=== PATIENT | female | born 1930 | race Caucasian/White ===

== ENCOUNTER 2016-09-13 10:35 | Outpatient (CLI) | payer MEDICARE, OTHER | END 2016-09-13 10:36 | disposition home or self-care (01) | DX: N39.0 Urinary tract infection, site not specified (principal) ==

== ENCOUNTER 2016-12-16 09:51 | Outpatient (CLI) | payer MEDICARE, OTHER | END 2016-12-16 09:52 | disposition home or self-care (01) | DX: R10.31 Right lower quadrant pain (principal); N39.0 Urinary tract infection, site not specified ==

== ENCOUNTER 2016-12-19 07:53 | Outpatient (CLI) | payer MEDICARE, OTHER ==
[2016-12-19] MEDS ORDERED: IOPAMIDOL-300 100 ML VIAL IVP ONE (08:48)
== END 2016-12-19 07:54 | disposition home or self-care (01) ==
DX: N20.0 Calculus of kidney (principal)
CPT/HCPCS: 74178; Q9967

== ENCOUNTER 2017-01-31 10:21 | Emergency (ER) | payer MEDICARE, OTHER ==
[2017-01-31 11:20] LABS: UR CULTURE IF IND NOT INDICATED
[2017-01-31 11:35] LABS: BILIRUBIN,URINE SMALL (NEGATIVE)
[2017-01-31] MEDS ORDERED: ONDANSETRON 4 MG/2 ML VIAL IVP STA (11:43)
[2017-01-31] MEDS ORDERED: SODIUM CHLORIDE 0.9% 1,000 ML IV ONE ×2 (11:43→13:31)
[2017-01-31] MEDS ORDERED: ONDANSETRON 4 MG/2 ML VIAL ONE (11:44)
[2017-01-31 11:59] LABS: BASOPHILS % (AUTO) 0.3 %; HCT - HEMATOCRIT 31.1 % (37.0-47.0); HGB - HEMOGLOBIN 10.4 g/dL (12.0-16.0); LYMPHOCYTES # (AUTO) 1.3 10^3/uL (1.5-3.5); MEAN CORPUSCULAR HEMOGLOBIN 29.3 pg (27.0-31.0); MEAN CORPUSCULAR HGB CONC 33.5 g/dL (32.0-36.0); MEAN CORPUSCULAR VOLUME 87.5 fL (81.0-99.0); MEAN PLATELET VOLUME 6.6 fL (7.9-10.8); MONOCYTES # (AUTO) 0.9 10^3/uL (0.0-1.0); MONOCYTES % (AUTO) 7.1 %; NEUTROPHILS % (AUTO) 81.6 %; RED BLOOD COUNT 3.55 10^6/uL (4.20-5.40); RED CELL DISTRIBUTION WIDTH 14.5 % (12.0-15.0); UNCORRECTED WHITE BLOOD COUNT 12.2 x10^3/uL; WHITE BLOOD COUNT 12.2 x10^3/uL (4.8-10.8)
[2017-01-31 12:12] LABS: CALCIUM 8.7 mg/dL (8.5-10.3); POTASSIUM 3.4 mmol/L (3.5-5.0); TOTAL PROTEIN 6.5 g/dL (6.7-8.2)
[2017-01-31] MEDS ORDERED: HYDROmorphone 1 MG/ML SYRINGE IVP STA (12:28)
[2017-01-31] MEDS ORDERED: HYDROmorphone 1 MG/ML SYRINGE ONE (12:28)
--- NOTE | 2017-01-31 14:21 | XRAY Preliminary Report ---
Exam: XR Abdomen 1 View IMPRESSION: No obvious calcifications projecting over the expected location of the right kidney or ur eter. Sensitivity is somewhat limited secondary to dense overlying stool. [facility] SITE ID: [id number]
--- NOTE | 2017-01-31 14:23 | XRAY Report ---
EXAM: ABDOMEN RADIOGRAPHY EXAM DATE: 01/31/2017 02:06 PM. CLINICAL HISTORY: Rt sided abd pain; 2 days S/P percutan. nephrostom. COMPARISON: 12/19/2016. TECHNIQUE: 1 view. FINDINGS: Bowel Gas Pattern: There is large volume stool within right colon. There is high normal caliber left abdomen small bowel. Other: No obvious calcifications projecting over the expected location of the right kidney or ureter. IMPRESSION: No obvious calcifications projecting over the expected location of the right kidney or ur eter. Sensitivity is somewhat limited secondary to dense overlying stool. [facility] Referring Provider Line: [phone] SITE ID: [id number]
--- NOTE | 2017-01-31 14:30 | ED Physician Documentation ---
PD HPI ABD PAIN - Stated complaint Stated Complaint: VOMITING/BLOOD IN URINE - Chief complaint Chief Complaint: Abd Pain - History obtained from History obtained from: Patient, Family (spouse) - History of Present Illness Quality: Pain Location: Other (lower abdomen and right flank) Associated symptoms: Fever (last night), Vomiting Recently seen: Surgery (2 days S/P Percutaneous Nephrostomy/Lithotripsy.) - Additional information Additional information: The patient is an 86-year-old female who is 2 days status post right percutaneous nephrostomy/lithotripsy, who presents with right flank and lower abdominal pain. She has had at least 3 episodes of vomiting, stating she is not able to eat or drink anything due to nausea. She reports low-grade fever last night. She denies dysuria, but has noticed bloody urine. Review of Systems Constitutional: reports: Fever Nose: denies: Congestion Throat: denies: Sore throat Cardiac: denies: Chest pain / pressure Respiratory: denies: Dyspnea, Cough GI: reports: Abdominal Pain, Nausea, Vomiting : reports: Hematuria. 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 (2 days status post percutaneous kidney stone removal.) - Present Medications Home Medications: Ambulatory Orders Medication Instructions Recorded Confirmed Aspirin 1 tab ORAL DAILY PM 01/22/14 01/22/14 Cholestyramine [Questran] 01/22/14 01/22/14 Diltiazem HCl [Tiazac] 1 tab ORAL DAILY PM 01/22/14 03/31/16 LORazepam [Ativan] 1 tab ORAL PRN PRN 01/22/14 03/31/16 Losartan [Cozaar] 1 tab ORAL DAILY 01/22/14 03/31/16 Oxybutynin [Ditropan] 10 mg ORAL DAILY 01/22/14 03/31/16 Promethazine [Phenergan] 25 - 50 mg PO Q6H PRN #10 tab 01/31/17 - Allergies Allergies/Adverse Reactions: Allergies Allergy/AdvReac Type Severity Reaction Status Date / Time cefixime Allergy Hives Verified 07/04/16 18:35 ciprofloxacin Allergy Unknown Verified 01/31/17 10:47 - Social History Does the pt smoke?: No Smoking Status: Never smoker Does the pt drink ETOH?: No Does the pt have substance abuse?: No PD ED PE NORMAL - Vitals Vital signs reviewed: Yes (initially hypertensive.) - General General: Alert and oriented X 3, Well developed/nourished, Other (Appears uncomfortable.) - HEENT HEENT: Atraumatic, Pharynx benign - Neck Neck: No adenopathy, No JVD - Cardiac Cardiac: RRR, No murmur - Respiratory Respiratory: No respiratory distress, Clear bilaterally - Abdomen Abdomen: Soft, Other (Mild tenderness to palpation in the lower abdomen, without rebound or guarding.) - Back Back: Other (Percutaneous nephrostomy site at the right flank is nonerythematous and without swelling or fluid drainage.) - Derm Derm: No rash - Extremities Extremities: No edema, No calf tenderness / cord - Neuro Neuro: Alert and oriented X 3, No motor deficit, Normal speech Results - Vitals Vitals: Vital Signs - 24 hr 01/31/17 01/31/17 01/31/17 10:43 11:00 12:31 Temperature 37 C Heart Rate 89 89 Respiratory 16 16 Rate Blood Pressure 148/70 H 159/66 H O2 Saturation 89 L 97 95 01/31/17 01/31/17 01/31/17 13:31 14:49 15:11 Temperature Heart Rate 92 89 103 H Respiratory 16 16 20 Rate Blood Pressure 140/64 H 149/71 H 168/81 H O2 Saturation 97 95 95 01/31/17 01/31/17 16:03 16:19 Temperature Heart Rate 97 79 Respiratory 16 18 Rate Blood Pressure 144/60 H 144/61 H O2 Saturation 89 L 91 L Oxygen O2 Source Room air - Labs Labs: Laboratory Tests 01/31/17 01/31/17 01/31/17 10:53 11:52 11:52 WBC 12.2 H RBC 3.55 L Hgb 10.4 L Hct 31.1 L MCV 87.5 MCH 29.3 MCHC 33.5 RDW 14.5 Plt Count 244 MPV 6.6 L Neut # 10.0 H Lymph # 1.3 L [place] # 0.9 Eos # 0.0 Baso # 0.0 Absolute Nucleated RBC 0.00 Nucleated RBCs 0.0 Sodium 135 Potassium 3.4 L Chloride 99 L Carbon Dioxide 27 Anion Gap 9.0 BUN 16 Creatinine 1.0 Estimated GFR (MDRD) 53 L Glucose 126 H Calcium 8.7 Total Bilirubin 1.0 AST 22 ALT 15 Alkaline Phosphatase 104 Total Protein 6.5 L Albumin 3.2 Globulin 3.3 Albumin/Globulin Ratio 1.0 Lipase 12 L Urine Color RED/BLOODY Urine Clarity BLOODY Urine pH 6.0 Ur Specific [place] >=1.030 H Urine Protein 100 H Urine Glucose (UA) NEGATIVE Urine Ketones 40 H Urine Occult Blood LARGE H Urine Nitrite NEGATIVE Urine Bilirubin SMALL H Urine Urobilinogen 0.2 (NORMAL) Ur Leukocyte Esterase NEGATIVE Urine RBC TNTC H Urine WBC 4-5 Ur Squamous Epith Cells FEW Squamous Urine Bacteria Few Urine Culture Comments NOT INDICATED - Rads (name of study) 1-view Abdomen Radiology: Prelim report reviewed, EMP read contemporaneously, See rad report ( No obvious calcifications projecting over the expected location of the right kidney or ureter. 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 Her urinalysis reveals hematuria, without urinary infection. I doubt pyelonephritis. A KUB reveals no evidence of remaining renal or ureteral calculus. CBC reveals a mildly elevated white blood cell count of 12.2. Treatment in the emergency department included administration of normal saline 1 L IV, hydromorphone 1 mg IV, and Zofran 4 mg IV. Her symptoms markedly improved with the above treatment, and she subsequently demonstrated the ability to drink fluids and eat crackers, without recurrent nausea. She did have an episode of grossly bloody urine while in the emergency department. Her next urine output, however, was less bloody appearing, with only slight bloody tinge. I discussed her presentation with Dr. Stanley, the urologist, who advised that her symptoms are to be expected following the procedure that was performed 2 days ago. She advised symptomatic treatment and outpatient follow-up. The patient has a prescription for Percocet that has not yet been filled. I discharged her with a prescription for Phenergan. I discussed with her and her symptomatic treatment and outpatient follow-up, as well as potentially worrisome signs or symptoms that should prompt reevaluation in the emergency department. Departure - Departure Disposition: 01 Home, Self Care Clinical Impression: Dehydration, Hematuria, Status post urinary system surgery Abdominal pain Qualifiers: Abdominal location: unspecified location Qualified Code(s): R10.9 - Unspecified abdominal pain Vomiting Qualifiers: Vomiting type: unspecified Vomiting Intractability: non-intractable Nausea presence: with nausea Qualified Code(s): R11.2 - Nausea with vomiting, unspecified Condition: Stable Instructions: ED Nausea Vomiting Follow-Up: Kaylie Stanley MD [Physician No Access] - Jose Eduardo Rebollar MD [Primary Care Provider] - Prescriptions: Promethazine [Phenergan] 25 - 50 mg PO Q6H PRN #10 tab PRN Reason: Nausea / Vomiting Comments: 1. Drink plenty of fluids. 2. Use Phenergan as prescribed if needed for nausea. 3. You can use Percocet as previously prescribed if needed for pain. 4. Follow-up with Dr. Stanley in as planned. 5. Return to the emergency department if you develop increasing abdominal pain , persistent vomiting, or otherwise worsening symptoms. Discharge Date/Time: 01/31/17 16:33
[2017-01-31 16:20] VITALS: BP 144/61
== END 2017-01-31 16:33 | disposition home or self-care (01) ==
LOC: ED 10:21
DX: E86.0 Dehydration (principal); R31.9 Hematuria, unspecified; R10.31 Right lower quadrant pain; R11.2 Nausea with vomiting, unspecified; I10 Essential (primary) hypertension; Z93.6 Other artificial openings of urinary tract status; Z87.442 Personal history of urinary calculi; Z79.82 Long term (current) use of aspirin; Z98.890 Other specified postprocedural states
CPT/HCPCS: 36415; 74000; 80053; 81001; 83690; 85025; 96374; 96375; 99284; J1170; 87086

== ENCOUNTER 2017-07-10 14:16 | Outpatient (CLI) | payer MEDICARE, OTHER ==
--- NOTE | 2017-07-11 16:07 | Mammography Report ---
DIGITAL BILATERAL SCREENING MAMMOGRAM: 07/10/2017 COMPARISON: Mammogram of 04/18/2015. TECHNIQUE: Routine CC and MLO projections were obtained of the breasts. FINDINGS: Parenchymal tissue within both breasts is heterogeneously dense, which may lower the sensitivity of mammography; however, there are no dominant masses, suspicious microcalcifications, or secondary signs of malignancy. In comparison to the previous studies, there are no significant changes. ASSESSMENT: NO MAMMOGRAPHIC EVIDENCE OF MALIGNANCY. NO SIGNIFICANT INTERVAL CHANGES. RECOMMENDATION: Screening mammography is recommended annually. BIRADS category 1 - negative. STANDARD QUALIFYING STATEMENTS 1. This examination was reviewed with the aid of Computed-Aided Detection (CAD). 2. A negative or benign imaging report should not delay biopsy if clinically suspicious findings are present. Consider surgical consultation if warranted. More than 5% of cancers are not identified by imaging. 3. Dense breasts may obscure an underlying neoplasm. JOB #: [id number] EXT JOB #: [id number] KATHY
== END 2017-07-10 14:17 | disposition home or self-care (01) ==
LOC: DI 14:16
PROVIDERS: ATTEND Family Medicine
DX: Z12.31 Encounter for screening mammogram for malignant neoplasm of breast (principal)
CPT/HCPCS: 77067

== ENCOUNTER 2017-09-11 11:43 | Emergency (ER) | payer MEDICARE, OTHER ==
[2017-09-11 12:29] LABS: BASOPHILS # (AUTO) 0.1 10^3/uL (0.0-0.1); BASOPHILS % (AUTO) 0.9 %; EOSINOPHILS # (AUTO) 0.1 10^3/uL (0.0-0.7); EOSINOPHILS % (AUTO) 1.7 %; HGB - HEMOGLOBIN 12.2 g/dL (12.0-16.0); LYMPHOCYTES # (AUTO) 3.3 10^3/uL (1.5-3.5); LYMPHOCYTES % (AUTO) 49.7 %; MEAN CORPUSCULAR HEMOGLOBIN 29.8 pg (27.0-31.0); MEAN CORPUSCULAR HGB CONC 34.3 g/dL (32.0-36.0); MEAN CORPUSCULAR VOLUME 86.9 fL (81.0-99.0); MEAN PLATELET VOLUME 7.1 fL (7.9-10.8); MONOCYTES # (AUTO) 0.5 10^3/uL (0.0-1.0); MONOCYTES % (AUTO) 8.2 %; NEUTROPHILS # (AUTO) 2.6 10^3/uL (1.5-6.6); NEUTROPHILS % (AUTO) 39.5 %; PLT - PLATELET COUNT 237 10^3/uL (130-450); RED BLOOD COUNT 4.09 10^6/uL (4.20-5.40); RED CELL DISTRIBUTION WIDTH 14.3 % (12.0-15.0); WHITE BLOOD COUNT 6.6 x10^3/uL (4.8-10.8)
[2017-09-11 12:48] LABS: ALBUMIN 3.8 g/dL (3.2-5.5); ALBUMIN/GLOBULIN RATIO 1.1 (1.0-2.2); BILIRUBIN,TOTAL 0.6 mg/dL (0.2-1.0); CALCIUM 9.2 mg/dL (8.5-10.3); CREATININE 0.7 mg/dL (0.4-1.0); TOTAL PROTEIN 7.2 g/dL (6.7-8.2)
--- NOTE | 2017-09-11 14:20 | ED Physician Documentation ---
History of Present Illness - Stated complaint Stated Complaint: BACK/CHEST PX - Chief complaint Chief Complaint: Cardiac - Additonal information Additional information: hx from pt 87 y/o female has had upper left back pain every night making it hard to sleep for a long time worse recently last two nights she has also had left upper chest pain when she lays down lasting until at least 4 AM no fever cough not soa no abd pain has recently had numerous urology procedures and tests Review of Systems Constitutional: denies: Fever, Chills Cardiac: reports: Chest pain / pressure Respiratory: denies: Dyspnea, Cough GI: denies: Abdominal Pain Musculoskeletal: reports: Back pain (upper left) Neurologic: denies: Generalized weakness Endocrine: denies: Easy bruising / bleeding Immunocompromised: denies: Immunocompromised PD PAST MEDICAL HISTORY - Past Medical History Past Medical History: Yes Cardiovascular: Hypertension Respiratory: None Neuro: None Endocrine/Autoimmune: None : Kidney stones Psych: Depression - Past Surgical History 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 - Present Medications Home Medications: Ambulatory Orders Medication Instructions Recorded Confirmed Aspirin 1 tab ORAL DAILY PM 01/22/14 01/22/14 Cholestyramine [Questran] 01/22/14 01/22/14 Diltiazem HCl [Tiazac] 1 tab ORAL DAILY PM 01/22/14 03/31/16 LORazepam [Ativan] 1 tab ORAL PRN PRN 01/22/14 03/31/16 Losartan [Cozaar] 1 tab ORAL DAILY 01/22/14 03/31/16 Oxybutynin [Ditropan] 10 mg ORAL DAILY 01/22/14 03/31/16 Promethazine [Phenergan] 25 - 50 mg PO Q6H PRN #10 tab 01/31/17 Lidocaine Patch 5% [Lidoderm Patch] 1 - 2 each TOP DAILY PRN #20 patch 09/11/17 - Allergies Allergies/Adverse Reactions: Allergies Allergy/AdvReac Type Severity Reaction Status Date / Time cefixime Allergy Hives Verified 07/04/16 18:35 ciprofloxacin Allergy Unknown Verified 01/31/17 10:47 - Social History Does the pt smoke?: No Smoking Status: Never smoker Does the pt drink ETOH?: No Does the pt have substance abuse?: No Results - Vitals Vitals: Vital Signs - 24 hr 09/11/17 09/11/17 09/11/17 11:48 13:31 14:34 Temperature 36.8 C Heart Rate 78 61 58 L Respiratory 16 14 16 Rate Blood Pressure 146/87 H 140/74 H 158/69 H O2 Saturation 98 100 99 Oxygen O2 Source Room air - EKG (time done) 1151 Rate: Rate (enter#) (65) Rhythm: NSR [place]: Normal Intervals: Normal [place] QRS: Normal Ischemia: Normal ST segments - Labs Labs: Laboratory Tests 09/11/17 09/11/17 09/11/17 12:15 12:15 12:15 WBC 6.6 RBC 4.09 L Hgb 12.2 Hct 35.5 L MCV 86.9 MCH 29.8 MCHC 34.3 RDW 14.3 Plt Count 237 MPV 7.1 L Neut # 2.6 Lymph # 3.3 [place] # 0.5 Eos # 0.1 Baso # 0.1 Absolute Nucleated RBC 0.00 Nucleated RBC % 0.1 Sodium 138 Potassium 3.9 Chloride 99 L Carbon Dioxide 27 Anion Gap 12.0 BUN 21 H Creatinine 0.7 Estimated GFR (MDRD) 80 L Glucose 92 Calcium 9.2 Total Bilirubin 0.6 AST 24 ALT 17 Alkaline Phosphatase 100 Troponin I < 0.04 Total Protein 7.2 Albumin 3.8 Globulin 3.4 Albumin/Globulin Ratio 1.1 Lipase 14 L - Rads (name of study) CXR Radiology: See rad report (NACPD tight mediastinum and no cap/effusion) PD MEDICAL DECISION MAKING - ED course ED course: neg EKG and CE after pain for all night several night in a row effectively ruling out ACS no mass on CXR no soa hypoxia tachypnea tachycardia leg edema etc to suggest PE CXR shows tight mediastinum - not suggesting dissection and unlikely PE or dissection would hurt only at night for many nights in a row will reassure and dc with lido patch to wear at night Departure - Departure Disposition: 01 Home, Self Care Clinical Impression: Back pain Qualifiers: Back pain location: thoracic back pain Chronicity: chronic Back pain laterality : left Qualified Code(s): M54.6 - Pain in thoracic spine; G89.29 - Other chronic pain; G89.29 - Other chronic pain Chest pain Qualifiers: Chest pain type: unspecified Qualified Code(s): R07.9 - Chest pain, unspecified Condition: Good Instructions: ED Chest Pain Atypical Unkn Cause, ED Neck Back Pain General Follow-Up: Jose Eduardo Rebollar MD [Primary Care Provider] - Prescriptions: Lidocaine Patch 5% [Lidoderm Patch] 1 - 2 each TOP DAILY PRN #20 patch PRN Reason: Pain Comments: All the tests today came back fine. Your history exam labs xray and EKG do not suggest a heart attack, a blood clot in your lungs, a tear or aneurysm of your aorta, shingles, pneumonia, or a mass in your lung. I am honsestly not certain what is causing the pain but I thik it is safe for you to go home from the emergency room and to follow up with Dr Rebollar for further testing as an outpatient - such as the echocardiogram we talked about Try the lidocaine patches - apply one hour before bed since the pain only occurs at night - and then remove in the morning. You can use up to two patches at a time if you need to put one front and one back
--- NOTE | 2017-09-11 14:40 | XRAY Preliminary Report ---
Exam: XR CHEST 2 VIEW X-RAY IMPRESSION: Normal 2-view chest radiography. [facility] SITE ID: [id number]
--- NOTE | 2017-09-11 14:51 | XRAY Report ---
EXAM: CHEST RADIOGRAPHY EXAM DATE: 09/11/2017 02:20 PM. CLINICAL HISTORY: Chest pain. COMPARISON: 07/04/2016. TECHNIQUE: 2 views. FINDINGS: Lungs/Pleura: Interval resolution of the small right basilar infiltrate. No focal opacities evident. No pleural effusion. No pneumothorax. Normal volumes. Mediastinum: Heart and mediastinal contours are unremarkable. Other: None. IMPRESSION: Normal 2-view chest radiography. [facility] Referring Provider Line: [phone] SITE ID: [id number]
[2017-09-11 15:36] VITALS: BP 152/76
== END 2017-09-11 15:45 | disposition home or self-care (01) ==
LOC: ED 11:43
DX: M54.6 Pain in thoracic spine (principal); G89.29 Other chronic pain; R07.9 Chest pain, unspecified; I10 Essential (primary) hypertension; Z79.82 Long term (current) use of aspirin
CPT/HCPCS: 36415; 71046; 80053; 83690; 84484; 85025; 93005; 99283; 99284

== ENCOUNTER 2018-07-01 09:28 | Outpatient (CLI) | payer MEDICARE, OTHER ==
--- NOTE | 2018-07-01 14:25 | CARDIAC PROCEDURE NOTE ---
DATE OF SERVICE: 07/01/2018 Physician: Suzie Castaneda MD, [facility] INDICATION: Chest pain. CARDIAC RISK FACTORS: Advanced age, postmenopausal status, hypertension, family history of heart disease. The patient reports 2 different types of chest pain: She has anterior chest pain when she lays down, trying to go to sleep and another left posterior chest pain when she is "doing housework". SUMMARY: After signing informed consent, the patient underwent a Adolfo-protocol treadmill stress test with nuclear myocardial imaging. RESTING HEART RATE: 63. PEAK HEART RATE: 129 (95% predicted maximum heart rate). RESTING BLOOD PRESSURE: 180/80. PEAK BLOOD PRESSURE: 172/70. Excessively fast heart rate response to exercise, abnormal blood pressure drop to exercise. The patient exercised for 1 minute and 43 seconds on a Adolfo-protocol treadmill stress test. The patient achieved a peak heart rate of 129 (95% PMHR) and 3.5 METS. She developed mild to moderate shortness of breath. She had no chest pain with walking, but described chest pain as soon as she sat down in recovery in the anterior chest, not the posterior left chest. This chest pain resolved after 2 minutes of recovery. Oxygen saturation at peak was 98% on room air. RESTING EKG: Normal sinus rhythm, flat T-wave in lead aVF. PEAK EK mm ST depressions in leads III and aVF with unchanged T waves. SUMMARY: 1. Poor exercise tolerance. 2. Abnormal blood pressure response to exercise, this is concerning for widespread coronary ischemia. 3. Ischemic changes on EKG at an adequate level of stress. 4. High blood pressure, poorly controlled. 4. Nuclear images reported separately. cc: Jose Eduardo Rebollar MD TD: 07/01/2018 13:00 MTDD
--- NOTE | 2018-07-01 16:25 | Nuclear Medicine Report ---
Reason: CHEST PAIN Procedure Date: 07/01/2018 Accession Number: [id number] / [id number] Procedure: NM - Myocardial Perfusion STR/RST CPT Code: FULL RESULT: EXAM: SINGLE-ISOTOPE EXERCISE STRESS TEST. SINGLE-ISOTOPE AND ONE-DAY REST/STRESS MYOCARDIAL PERFUSION SCANS WITH TOMOGRAPHIC IMAGING, QUANTITATIVE ANALYSIS, WALL MOTION ANALYSIS AND CALCULATION OF EJECTION FRACTION. EXAM DATE: 07/01/2018 01:54 PM. CLINICAL HISTORY: CHEST PAIN. COMPARISON: None. TECHNIQUE: A rest myocardial perfusion scan was done with tomography after the intravenous administration of 9.7 mCi Tc-99m sestamibi. After an appropriate delay, a treadmill exercise stress was performed according to department protocol. The patient exercised for 1 minutes and 31 seconds. The maximum heart rate was 129 bpm, which was 95% of the maximum predicted heart rate of 135 bpm. At approximately peak heart rate, 42.3 mCi of Tc-99m sestamibi was injected for stress myocardial perfusion scan. Motion correction was applied when appropriate. Gated tomographic images were obtained for wall motion analysis and computation of left ventricular ejection fraction. FINDINGS: No fixed or reversible perfusion defects are evident. Computer analysis: Summed stress score 1 Summed rest score 0 Summed difference score 1 Wall motion analysis demonstrates no focal wall motion abnormality The left ventricular end-diastolic volume is 33 cc. The left ventricular end-systolic volume is 1 cc. The left ventricular ejection fraction is calculated to be 95%. IMPRESSION: 1. No scintigraphic findings to indicate myocardial ischemia. Negative for infarct. 2. Normal left ventricular ejection fraction of 95% (presumably an overestimate). 3. Normal segmental and global wall motion. 4. Normal left ventricular cavity size, no change with stress. 5. Based on computer analysis, normal exam with no ischemia [facility]
== END 2018-07-01 09:29 | disposition home or self-care (01) ==
LOC: DI 09:28
PROVIDERS: ATTEND Family Medicine
DX: R07.89 Other chest pain (principal); I10 Essential (primary) hypertension; Z82.49 Family history of ischemic heart disease and other diseases of the circulatory system; Z78.0 Asymptomatic menopausal state
CPT/HCPCS: 78452; 93017; A9500

== ENCOUNTER 2018-10-22 14:43 | Emergency (ER) | payer MEDICARE, OTHER ==
[2018-10-22 14:57] VITALS: BP 132/60
[2018-10-22] MEDS ORDERED: DEXAMETHASONE 10 MG/ML VIAL PO STA (15:12)
[2018-10-22] MEDS ORDERED: diphenhydrAMINE 25 MG CAPSULE PO STA (15:12)
--- NOTE | 2018-10-22 15:12 | ED Physician Documentation ---
PD HPI UPPER EXT INJURY - Stated complaint Stated Complaint: FINGER INJURY - Chief complaint Chief Complaint: Ext Problem - History obtained from History obtained from: Patient, Family - History of Present Illness Location: Left, Finger (pinky) Type of injury: Other (bite) Where injury occurred: Home Timing - onset: Enter time (1400), Today Timing - duration: Minutes Timing - details: Abrupt onset, Still present Improved by: Rest, Ice, Immobilization Worsened by: Moving, Palpating Associated symptoms: Swelling, Discolored. No: Weakness, Numbness Contributing factors: No: Anticoagulated Similar symptoms before: Has not had sx before Recently seen: Not recently seen - Additonal information Additional information: 88-year-old female was outside putting a pair of gardening gloves on to help her the role of a extension cord when she felt the sudden severe pain to her pinky finger on the left hand. She pulled her hand out of the glove rapidly to find redness and swelling to the dorsal surface of the fifth digit. She did not see a Bee or a bug and the turned gloves inside out. She does state that she was able to unroofed a small blister that drained some clear fluid. Review of Systems Constitutional: denies: Fever, Chills, Myalgias Respiratory: denies: Cough GI: denies: Vomiting : denies: Dysuria Skin: reports: Bite / sting. denies: Rash Musculoskeletal: reports: Extremity pain. 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 Home Medications: Ambulatory Orders Medication Instructions Recorded Confirmed Diltiazem HCl [Tiazac] 1 tab ORAL DAILY PM 01/22/14 03/31/16 LORazepam [Ativan] 1 tab ORAL PRN PRN 01/22/14 03/31/16 Losartan [Cozaar] 1 tab ORAL DAILY 01/22/14 03/31/16 RX: Aspirin 1 tab ORAL DAILY PM 01/22/14 01/22/14 RX: Cholestyramine [Questran] 01/22/14 01/22/14 RX: Oxybutynin [Ditropan] 10 mg ORAL DAILY 01/22/14 03/31/16 Promethazine [Phenergan] 25 - 50 mg PO Q6H PRN #10 tab 01/31/17 RX: Lidocaine Patch 5% [Lidoderm 1 - 2 each TOP DAILY PRN #20 patch 09/11/17 Patch] - Allergies Allergies/Adverse Reactions: Allergies Allergy/AdvReac Type Severity Reaction Status Date / Time cefixime Allergy Hives Verified 10/22/18 14:57 ciprofloxacin Allergy Unknown Verified 10/22/18 14:57 - Social History Does the pt smoke?: No Smoking Status: Never smoker Does the pt drink ETOH?: No Does the pt have substance abuse?: No PD ED PE NORMAL - Vitals Vital signs reviewed: Yes (hypertensive mild ) - General General: Alert and oriented X 3, No acute distress, Well developed/nourished - HEENT HEENT: Atraumatic, PERRL, EOMI - Respiratory Respiratory: No respiratory distress - Derm Derm: Normal color, Warm and dry, No rash - Extremities Extremities: No deformity, No edema, Other (There is erythema to the left 5th digit over the dorsum to the hand. There is no drainage and no lymphangitic streaking. The swelling is mild. 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, No motor deficit, No sensory deficit, Normal speech Eye Opening: Spontaneous Motor: Obeys Commands Verbal: Oriented GCS Score: 15 - Psych Psych: Normal mood, Normal affect Results - Vitals Vitals: Vital Signs - 24 hr 10/22/18 14:50 Temperature 36.4 C L Heart Rate 68 Respiratory 16 Rate Blood Pressure 132/60 H O2 Saturation 98 Oxygen O2 Source Room air PD MEDICAL DECISION MAKING - ED course Complexity details: considered differential, d/w patient, d/w family ED course: 88-year-old female with what sounds like a bee envenomation by the dramatic nature of it has had reduction in the amount of swelling. She is administered dexamethasone 10 mg orally and 25 mg of Benadryl. She is instructed to return should he have signs or symptoms of cellulitis develop. We did discuss both spider and bee envenomation and the development of signs and symptoms of infection several days after the bite. Departure - Departure Disposition: 01 Home, Self Care Clinical Impression: Hymenoptera sting Condition: Stable Instructions: ED Bite Sting Insect Local Allergic React Follow-Up: Jose Eduardo Rebollar MD [Primary Care Provider] - Discharge Date/Time: 10/22/18 15:27
[2018-10-22] MEDS ORDERED: CHERRY SYRUP 10 ML UDC PO ONE (15:20)
== END 2018-10-22 15:27 | disposition home or self-care (01) ==
LOC: ED 14:43
DX: T63.461A Toxic effect of venom of wasps, accidental (unintentional), initial encounter (principal); L53.9 Erythematous condition, unspecified; I10 Essential (primary) hypertension
CPT/HCPCS: 99282; A9270

== ENCOUNTER 2018-10-27 08:00 | Outpatient (CLI) | payer MEDICARE, OTHER ==
[2018-10-27 19:21] LABS: BASOPHILS % (AUTO) 0.8 %; EOSINOPHILS # (AUTO) 0.1 10^3/uL (0.0-0.7); EOSINOPHILS % (AUTO) 1.7 %; HGB - HEMOGLOBIN 12.1 g/dL (12.0-16.0); LYMPHOCYTES # (AUTO) 2.6 10^3/uL (1.5-3.5); LYMPHOCYTES % (AUTO) 43.3 %; MEAN CORPUSCULAR HEMOGLOBIN 29.6 pg (27.0-31.0); MEAN CORPUSCULAR HGB CONC 33.4 g/dL (32.0-36.0); MEAN CORPUSCULAR VOLUME 88.6 fL (81.0-99.0); MEAN PLATELET VOLUME 7.4 fL (7.9-10.8); MONOCYTES # (AUTO) 0.6 10^3/uL (0.0-1.0); NEUTROPHILS # (AUTO) 2.6 10^3/uL (1.5-6.6); NEUTROPHILS % (AUTO) 44.2 %; PLT - PLATELET COUNT 279 10^3/uL (130-450); RED BLOOD COUNT 4.09 10^6/uL (4.20-5.40); RED CELL DISTRIBUTION WIDTH 14.5 % (12.0-15.0)
[2018-10-27 19:29] LABS: ALBUMIN 3.9 g/dL (3.2-5.5); ALBUMIN/GLOBULIN RATIO 1.3 (1.0-2.2); BILIRUBIN,TOTAL 0.5 mg/dL (0.2-1.0); CALCIUM 9.2 mg/dL (8.5-10.3); CREATININE 0.7 mg/dL (0.4-1.0)
== END 2018-10-27 23:59 | disposition home or self-care (01) ==
LOC: LAB.WCP 08:00
PROVIDERS: ATTEND Family Medicine
DX: D64.9 Anemia, unspecified (principal); I10 Essential (primary) hypertension
CPT/HCPCS: 36415; 80053; 84443; 85025

== ENCOUNTER 2019-03-15 17:40 | Emergency (ER) | payer MEDICARE, OTHER ==
[2019-03-15 18:22] LABS: BASOPHILS % (AUTO) 0.6 %; EOSINOPHILS # (AUTO) 0.2 10^3/uL (0.0-0.7); EOSINOPHILS % (AUTO) 2.3 %; HGB - HEMOGLOBIN 11.2 g/dL (12.0-16.0); LYMPHOCYTES # (AUTO) 3.4 10^3/uL (1.5-3.5); LYMPHOCYTES % (AUTO) 51.9 %; MEAN CORPUSCULAR HEMOGLOBIN 28.5 pg (27.0-31.0); MEAN CORPUSCULAR HGB CONC 31.5 g/dL (32.0-36.0); MEAN CORPUSCULAR VOLUME 90.3 fL (81.0-99.0); MONOCYTES # (AUTO) 0.6 10^3/uL (0.0-1.0); MONOCYTES % (AUTO) 9.4 %; NEUTROPHILS # (AUTO) 2.3 10^3/uL (1.5-6.6); NEUTROPHILS % (AUTO) 35.3 %; PLT - PLATELET COUNT 241 10^3/uL (130-450); RED BLOOD COUNT 3.93 10^6/uL (4.20-5.40); RED CELL DISTRIBUTION WIDTH 13.7 % (12.0-15.0); WHITE BLOOD COUNT 6.5 x10^3/uL (4.8-10.8)
[2019-03-15 18:36] LABS: ALBUMIN 3.7 g/dL (3.2-5.5); ALBUMIN/GLOBULIN RATIO 1.1 (1.0-2.2); BILIRUBIN,TOTAL 0.5 mg/dL (0.2-1.0); CALCIUM 9.5 mg/dL (8.5-10.3); CREATININE 0.7 mg/dL (0.4-1.0); TOTAL PROTEIN 7.1 g/dL (6.7-8.2)
--- NOTE | 2019-03-15 18:43 | XRAY Report ---
Reason: chest pain Procedure Date: 03/15/2019 Accession Number: [id number] / [id number] Procedure: XR - Chest 1 View X-Ray CPT Code: 87383 FULL RESULT: EXAM: CHEST RADIOGRAPHY EXAM DATE: 03/15/2019 06:33 PM. CLINICAL HISTORY: Chest pain. COMPARISON: CHEST 2 VIEW 09/11/2017 2:16 PM. TECHNIQUE: 1 view. FINDINGS: Lungs/Pleura: Mild interstitial prominence. No definite localized infiltrate, consolidation, effusion, or pneumothorax. Mediastinum: Overall heart size within normal limits and unchanged. Tortuous aorta. Upper lobe vessels not distended. Other: Osteopenia. IMPRESSION: No acute disease. RADIA
--- NOTE | 2019-03-15 19:19 | ED Physician Documentation ---
History of Present Illness - Stated complaint Stated Complaint: L SIDED CHEST/FLANK PX - Chief complaint Chief Complaint: Cardiac - History obtained from History obtained from: Patient - History of Present Illness Timing: Yesterday - Additonal information Additional information: Patient is an 88-year-old female with history of HTN and chronic back pain particularly on the left side that is presenting because his pain has now radiated to the front of her chest directly below the breast, worsening yesterday.Patient denies other chest pain, acid reflux-like discomfort, shortness of breath, productive cough, fever, abdominal pain no nausea, vomiting, urinary changes, or stool changes. Patient also denies significant weight gain or edema particularly leg swelling or pain. No other improving or worsening factors noted. Patient has primary care evaluation scheduled for tomorrow. Review of Systems Constitutional: denies: Fever Cardiac: reports: Chest pain / pressure. 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 - Present Medications Home Medications: Ambulatory Orders Medication Instructions Recorded Confirmed Aspirin 1 tab ORAL DAILY PM 01/22/14 01/22/14 Cholestyramine [Questran] 01/22/14 01/22/14 Diltiazem HCl [Tiazac] 1 tab ORAL DAILY PM 01/22/14 03/31/16 LORazepam [Ativan] 1 tab ORAL PRN PRN 01/22/14 03/31/16 Losartan [Cozaar] 1 tab ORAL DAILY 01/22/14 03/31/16 Oxybutynin [Ditropan] 10 mg ORAL DAILY 01/22/14 03/31/16 Promethazine [Phenergan] 25 - 50 mg PO Q6H PRN #10 tab 01/31/17 Lidocaine Patch 5% [Lidoderm Patch] 1 - 2 each TOP DAILY PRN #20 patch 09/11/17 - Allergies Allergies/Adverse Reactions: Allergies Allergy/AdvReac Type Severity Reaction Status Date / Time cefixime Allergy Hives Verified 10/22/18 14:57 ciprofloxacin Allergy Unknown Verified 03/15/19 18:01 - Social History Does the pt smoke?: No Smoking Status: Never smoker Does the pt drink ETOH?: No Does the pt have substance abuse?: No PD ED PE NORMAL - Vitals Vital signs reviewed: Yes (hx htn) - General General: Alert and oriented X 3, No acute distress, Well developed/nourished - HEENT HEENT: Atraumatic, Moist mucous membranes - Neck Neck: Supple, no meningeal sign - Cardiac Cardiac: RRR, No murmur - Respiratory Respiratory: No respiratory distress, Clear bilaterally - Abdomen Abdomen: Soft, Non tender, Non distended - Derm Derm: Normal color, Warm and dry, No rash - Extremities Extremities: No deformity, No tenderness to palpate - Neuro Neuro: Alert and oriented X 3, No motor deficit, No sensory deficit - Psych Psych: Normal mood, Normal affect Results - Vitals Vitals: Vital Signs - 24 hr 03/15/19 03/15/19 17:59 19:39 Temperature 36.8 C 37.2 C Heart Rate 65 64 Respiratory 20 14 Rate Blood Pressure 175/79 H 172/108 H O2 Saturation 100 96 Oxygen O2 Source Room air - Labs Labs: Laboratory Tests 03/15/19 03/15/19 03/15/19 18:16 18:16 18:16 WBC 6.5 RBC 3.93 L Hgb 11.2 L Hct 35.5 L MCV 90.3 MCH 28.5 MCHC 31.5 L RDW 13.7 Plt Count 241 MPV 9.0 Neut # (Auto) 2.3 Lymph # (Auto) 3.4 [place] # (Auto) 0.6 Eos # (Auto) 0.2 Baso # (Auto) 0.0 Absolute Nucleated RBC 0.00 Nucleated RBC % 0.0 Sodium 139 Potassium 3.6 Chloride 101 Carbon Dioxide 26 Anion Gap 12.0 BUN 27 H Creatinine 0.7 Estimated GFR (MDRD) 79 L Glucose 109 H Calcium 9.5 Total Bilirubin 0.5 AST 18 ALT 13 Alkaline Phosphatase 93 Troponin I High Sens 4.6 Total Protein 7.1 Albumin 3.7 Globulin 3.4 Albumin/Globulin Ratio 1.1 Lipase 24 PD MEDICAL DECISION MAKING - ED course Complexity details: reviewed results, re-evaluated patient, considered differential, d/w patient, d/w family ED course: Feel the patient's discomfort is likely musculoskeletal or radicular in etiology. EKG initially read by other ED physician but upon chart review indicates sinus rhythm with likely LVH changes otherwise unremarkable.Troponin also within normal limits and have low suspicion for ischemia including ACS, unstable angina, VA, dissection, aneurysm at this time, but considered. Also low suspicion for PE and do not feel patient requires PE work-up. Chest x-ray obtained did not find evidence of edema, effusion, or pneumonia.'s remainder screening lab work relatively unremarkable. At this time, feel that patient is safe to discharge home particularly with close follow-up as already scheduled tomorrow. Discussed return precautions, supportive cares, potential cardiology referral. Patient and voiced understanding and are comfortable with discharge plan. Departure - Departure Disposition: 01 Home, Self Care Clinical Impression: Atypical chest pain Condition: Good Instructions: ED Chest Pain Atypical Unkn Cause Follow-Up: Jose Eduardo Rebollar MD [Primary Care Provider] - Tomorrow Comments: Recommend use of ibuprofen/Tylenol for likely musculoskeletal pain. Please continue home medications as previously instructed. Follow-up as scheduled with your primary care physician tomorrow and consider cardiology referral for likely stress test and ultrasound. Return to ED sooner if experience worsening symptoms or have other concerns.
[2019-03-15] MEDS ORDERED: ASPIRIN CHEW 81 MG TABLET PO STA (19:31)
[2019-03-15 20:28] VITALS: BP 151/73
== END 2019-03-15 20:28 | disposition home or self-care (01) ==
LOC: ED 17:40
DX: R07.89 Other chest pain (principal); M54.9 Dorsalgia, unspecified; G89.29 Other chronic pain; I10 Essential (primary) hypertension; Z79.82 Long term (current) use of aspirin
CPT/HCPCS: 36415; 71045; 80053; 83690; 84484; 85025; 93005; 99281; 99284; A9270

== ENCOUNTER 2019-03-25 12:34 | Outpatient (CLI) | payer MEDICARE, OTHER ==
--- NOTE | 2019-03-25 16:10 | DEXA Report ---
Reason: ASYMPTOMATIC POSTMENOPAUSAL STATUS Procedure Date: 03/25/2019 Accession Number: [id number] / [id number] Procedure: DEX - Dexa Spine and/or Hip CPT Code: FULL RESULT: EXAM: Dexa Spine and/or Hip DATE: 03/25/2019 2:00 PM CLINICAL HISTORY: ASYMPTOMATIC POSTMENOPAUSAL STATUS TECHNIQUE: Dual energy x-ray absorptiometry (DXA) was performed on a Puzl System. Regions measured are the AP Spine, femoral neck, and if needed forearm. COMPARISON: None. In accordance with the International Society for Clinical Densitometry (ISCD) guidelines, data from previous exams may be reanalyzed using current recommendations and techniques. This is done to allow a more accurate basis for comparison with the current study. FINDINGS: The data for the lumbar spine is as follows: BMD (g/cm/cm) T-SCORE Z-SCORE REGION L1 1.034 -0.8 1.3 L2 1.207 0.1 2.1 L3 1.190 -0.1 2.0 L4 1.222 0.2 2.3 TOTAL 1.164 -0.1 2.0 NOTE: All evaluable vertebrae are used for classification The data for the hip is as follows: BMD (g/cm/cm) T-SCORE Z-SCORE REGION Neck 0.765 -2.0 0.6 TOTAL 0.938 -0.6 1.9 NOTE: The femoral neck or total proximal femur, whichever is lowest, is used for classification. IMPRESSION: THE WHO CLASSIFICATION BASED ON THE INTERNATIONAL REFERENCE STANDARD IS OSTEOPENIA. THE FRACTURE RISK IS INCREASED. RECOMMENDATION: Patients with diagnosis of osteoporosis or osteopenia should have regular bone mineral density assessment. For those eligible for Medicare, routine testing is allowed once every 2 years. Testing frequency can be increased for patients who have rapidly progressing disease or for those who are receiving medical therapy to restore bone mass. COMMENT: World Health Organization (WHO) definitions for osteoporosis and osteopenia: NORMAL BMD: T-score at -1.0 or higher, fracture risk is low OSTEOPENIA BMD: T-score between -1.0 and -2.5, fracture risk is increased. OSTEOPOROSIS BMD: T-score at -2.5 or lower, fracture risk is high. National Osteoporosis Foundation recommends: 1. Obtain adequate dietary calcium (at least 1200 mg per day) and vitamin D (400-800 international units per day). 2. Participate, as appropriate, in regular weightbearing and muscle-strengthening exercise. 3. Avoid tobacco use and reduce alcohol and caffeine intake. 4. For more detailed information see the website at www.NOF.org.
== END 2019-03-25 12:35 | disposition home or self-care (01) ==
LOC: DI 12:34
PROVIDERS: ATTEND Family Medicine
DX: M85.89 Other specified disorders of bone density and structure, multiple sites (principal); Z78.0 Asymptomatic menopausal state
CPT/HCPCS: 77080

== ENCOUNTER 2019-06-17 14:24 | Outpatient (CLI) | payer MEDICARE, OTHER ==
[2019-06-17 18:58] LABS: BASOPHILS % (AUTO) 0.6 %; EOSINOPHILS # (AUTO) 0.1 10^3/uL (0.0-0.7); HGB - HEMOGLOBIN 11.7 g/dL (12.0-16.0); LYMPHOCYTES # (AUTO) 3.1 10^3/uL (1.5-3.5); LYMPHOCYTES % (AUTO) 48.4 %; MEAN CORPUSCULAR HGB CONC 31.5 g/dL (32.0-36.0); MEAN CORPUSCULAR VOLUME 91.8 fL (81.0-99.0); MEAN PLATELET VOLUME 9.6 fL (7.9-10.8); MONOCYTES # (AUTO) 0.6 10^3/uL (0.0-1.0); NEUTROPHILS # (AUTO) 2.5 10^3/uL (1.5-6.6); NEUTROPHILS % (AUTO) 39.7 %; PLT - PLATELET COUNT 256 10^3/uL (130-450); RED BLOOD COUNT 4.04 10^6/uL (4.20-5.40); RED CELL DISTRIBUTION WIDTH 14.2 % (12.0-15.0); WHITE BLOOD COUNT 6.4 x10^3/uL (4.8-10.8)
[2019-06-17 19:05] LABS: CALCIUM 9.7 mg/dL (8.5-10.3); CREATININE 0.9 mg/dL (0.4-1.0); URIC ACID 5.1 mg/dL (2.6-7.2)
== END 2019-06-17 23:59 | disposition home or self-care (01) ==
LOC: LAB.WCP 14:24
PROVIDERS: ATTEND Family Medicine
DX: I10 Essential (primary) hypertension (principal); N20.0 Calculus of kidney; M46.96 Unspecified inflammatory spondylopathy, lumbar region
CPT/HCPCS: 36415; 80048; 84443; 84550; 85025

== ENCOUNTER 2019-12-03 14:15 | Outpatient (CLI) | payer MEDICARE, OTHER | END 2019-12-03 23:59 | disposition home or self-care (01) | LOC: LAB.WCP 14:15 | PROVIDERS: ATTEND Family Medicine | DX: N39.0 Urinary tract infection, site not specified (principal) | CPT/HCPCS: 87086; 87181 ==

== ENCOUNTER 2019-12-09 10:38 | Outpatient (CLI) | payer MEDICARE, OTHER ==
--- NOTE | 2019-12-10 01:23 | CT Report ---
Reason: NEPHROLITHIASIS Procedure Date: 12/09/2019 Accession Number: [id number] / [id number] Procedure: CT - Abdomen/Pelvis WO CPT Code: Final Report FULL RESULT: EXAM: CT ABDOMEN AND PELVIS EXAM DATE:12/09/2019 10:52 AM CLINICAL HISTORY: NEPHROLITHIASIS. COMPARISONS: IVP 12/19/2016 8:43 AM. TECHNIQUE: Routine helical CT imaging was performed through the abdomen and pelvis without IV contrast or oral contrast. Reconstructions: Coronal and sagittal. In accordance with CT protocol optimization, one or more of the following dose reduction techniques were utilized for this exam: automated exposure control, adjustment of mA and/or KV based on patient size, or use of iterative reconstruction technique. FINDINGS: Lung Bases: Unremarkable. Calcified granuloma in the left lung/hilum. Liver: Unremarkable. Gallbladder/Bile Ducts: Unremarkable. Spleen: Unremarkable. Pancreas: Unremarkable. Adrenal Glands: Unremarkable. Kidneys: Residual moderate dilatation of the left renal pelvis. 5 mm nonobstructing stone in the right kidney. Stable simple left renal cyst. No imaging follow-up for this cyst is recommended per consensus recommendations based on imaging criteria. Peritoneal Cavity/Bowel: Colonic diverticula. Otherwise, the bowel is normal in caliber and contour. Pelvic Organs: Unremarkable. Vasculature: Severe coronary artery and severe aortic atherosclerotic calcifications. Bones: Unremarkable. Other: None. IMPRESSION: 1. No acute process seen in the abdomen or pelvis. 2. Residual moderate right pelviectasis and a nonobstructing 5 mm stone in the right kidney. No finding of obstructive uropathy. 3. Colonic diverticulosis. 4. Severe coronary artery and severe aortic atherosclerotic calcifications. RADIA
== END 2019-12-09 10:39 | disposition home or self-care (01) ==
LOC: DI 10:38
PROVIDERS: ATTEND Family Medicine
DX: N20.0 Calculus of kidney (principal); K57.30 Diverticulosis of large intestine without perforation or abscess without bleeding; I25.10 Atherosclerotic heart disease of native coronary artery without angina pectoris; I70.0 Atherosclerosis of aorta
CPT/HCPCS: 74176

== ENCOUNTER 2019-12-24 10:48 | Outpatient (CLI) | payer MEDICARE, OTHER ==
[2019-12-24 13:24] LABS: BASOPHILS % (AUTO) 0.5 %; EOSINOPHILS # (AUTO) 0.1 10^3/uL (0.0-0.7); EOSINOPHILS % (AUTO) 2.1 %; LYMPHOCYTES # (AUTO) 2.8 10^3/uL (1.5-3.5); LYMPHOCYTES % (AUTO) 48.6 %; MEAN CORPUSCULAR HEMOGLOBIN 28.9 pg (27.0-31.0); MEAN CORPUSCULAR HGB CONC 31.9 g/dL (32.0-36.0); MEAN CORPUSCULAR VOLUME 90.6 fL (81.0-99.0); MEAN PLATELET VOLUME 9.7 fL (7.9-10.8); MONOCYTES # (AUTO) 0.4 10^3/uL (0.0-1.0); MONOCYTES % (AUTO) 6.8 %; NEUTROPHILS # (AUTO) 2.4 10^3/uL (1.5-6.6); NEUTROPHILS % (AUTO) 41.8 %; PLT - PLATELET COUNT 225 10^3/uL (130-450); RED BLOOD COUNT 4.15 10^6/uL (4.20-5.40); RED CELL DISTRIBUTION WIDTH 13.8 % (12.0-15.0); WHITE BLOOD COUNT 5.7 x10^3/uL (4.8-10.8)
[2019-12-24 14:21] LABS: ALBUMIN 3.7 g/dL (3.2-5.5); ALBUMIN/GLOBULIN RATIO 1.1 (1.0-2.2); BILIRUBIN,TOTAL 0.7 mg/dL (0.2-1.0); CALCIUM 9.4 mg/dL (8.5-10.3); CREATININE 0.7 mg/dL (0.4-1.0); TOTAL PROTEIN 7.1 g/dL (6.7-8.2)
== END 2019-12-24 23:59 | disposition home or self-care (01) ==
LOC: LAB.WCP 10:48
PROVIDERS: ATTEND Family Medicine
DX: R10.31 Right lower quadrant pain (principal)
CPT/HCPCS: 36415; 80053; 84155; 84165; 85025; 85651

== ENCOUNTER 2019-12-30 12:40 | Outpatient (CLI) | payer MEDICARE, OTHER ==
[2019-12-30 13:15] LABS: CREATININE 0.7 mg/dL (0.4-1.0)
== END 2019-12-30 12:41 | disposition home or self-care (01) ==
LOC: LAB 12:40
PROVIDERS: ATTEND Urology
DX: N13.30 Unspecified hydronephrosis (principal)
CPT/HCPCS: 36415; 82565; 84520

== ENCOUNTER 2020-03-29 11:08 | Outpatient (CLI) | payer MEDICARE, OTHER ==
[2020-03-29 18:50] LABS: CALCIUM 9.6 mg/dL (8.5-10.3); CREATININE 0.8 mg/dL (0.4-1.0)
== END 2020-03-29 23:59 | disposition home or self-care (01) ==
LOC: LAB.WCP 11:08
PROVIDERS: ATTEND Family Medicine
DX: I10 Essential (primary) hypertension (principal)
CPT/HCPCS: 36415; 80048

== ENCOUNTER 2020-10-24 08:00 | Outpatient (CLI) | payer MEDICARE, OTHER ==
[2020-10-24 12:02] LABS: BASOPHILS # (AUTO) 0.1 10^3/uL (0.0-0.1); BASOPHILS % (AUTO) 0.7 %; EOSINOPHILS # (AUTO) 0.2 10^3/uL (0.0-0.7); EOSINOPHILS % (AUTO) 2.6 %; HCT - HEMATOCRIT 34.7 % (37.0-47.0); HGB - HEMOGLOBIN 10.9 g/dL (12.0-16.0); LYMPHOCYTES # (AUTO) 3.4 10^3/uL (1.5-3.5); LYMPHOCYTES % (AUTO) 46.1 %; MEAN CORPUSCULAR HEMOGLOBIN 29.1 pg (27.0-31.0); MEAN CORPUSCULAR HGB CONC 31.4 g/dL (32.0-36.0); MEAN CORPUSCULAR VOLUME 92.5 fL (81.0-99.0); MEAN PLATELET VOLUME 9.6 fL (7.9-10.8); MONOCYTES # (AUTO) 0.7 10^3/uL (0.0-1.0); MONOCYTES % (AUTO) 9.8 %; NEUTROPHILS % (AUTO) 40.7 %; PLT - PLATELET COUNT 242 10^3/uL (130-450); RED BLOOD COUNT 3.75 10^6/uL (4.20-5.40); RED CELL DISTRIBUTION WIDTH 14.4 % (12.0-15.0); WHITE BLOOD COUNT 7.3 x10^3/uL (4.8-10.8)
[2020-10-24 12:25] LABS: ALBUMIN 3.7 g/dL (3.2-5.5); BILIRUBIN,TOTAL 0.7 mg/dL (0.2-1.0); CALCIUM 9.3 mg/dL (8.5-10.3); POTASSIUM 3.7 mmol/L (3.5-5.0); TOTAL PROTEIN 7.4 g/dL (6.7-8.2)
== END 2020-10-24 23:59 | disposition home or self-care (01) ==
LOC: LAB.WCP 08:00
PROVIDERS: ATTEND Family Medicine
DX: R10.12 Left upper quadrant pain (principal)
CPT/HCPCS: 36415; 80053; 83690; 85025

== ENCOUNTER 2020-10-26 11:38 | Outpatient (CLI) | payer MEDICARE, OTHER ==
[2020-10-26] MEDS ORDERED: IOPAMIDOL-300 50 ML VIAL ONE (11:52)
[2020-10-26] MEDS ORDERED: IOVERSOL 320 100 ML VIAL IVP ONE ×2 (11:52→13:52)
[2020-10-26] MEDS ORDERED: IOPAMIDOL-300 50 ML VIAL PO ONE (13:54)
--- NOTE | 2020-10-26 17:07 | CT Report ---
PROCEDURE: Abdomen/Pelvis W INDICATIONS: LUQ ABD PAIN TECHNIQUE: After the administration of intravenous and oral contrast, 5 mm thick sections acquired from the diap hragms to the symphysis. 2.5 mm thick coronal and sagittal reformats were acquired. Optional 10-min elizabeth delayed imaging may be performed from the kidneys to the bladder. For radiation dose reduction, the following was used: automated exposure control, adjustment of mA and/or kV according to patient size. COMPARISON: CT abdomen/pelvis 12/09/2019 FINDINGS: Image quality: Excellent. ABDOMEN: Lung bases: Lung bases are clear. Heart size is normal. No pericardial effusion. No basal pleural effusions or pneumothorax. Solid organs: Liver is normal in size and enhancement, without lacerations. Gallbladder is contract ed. Biliary system is non-dilated. Pancreas enhances normally, without transection. Spleen is norm al in size and enhancement, without lacerations. No adrenal hematomas. Both kidneys enhance normall y. There is moderate dilation of the right renal pelvis to the ureteropelvic junction without an obs tructing calculus, which appears mildly worse when compared to the CT from 12/09/2019. A 5 mm calculus is seen in the dependent portion of the renal pelvis separate from the ureteropelvic junction. There is also mild dilation of the left renal collecting system to the level of the ureteropelvic junction. A 4 mm calculus is seen in the interpolar region of the left kidney. Peritoneum and bowel: No free fluid or air. Multiple diverticula are seen in the colon without signs of acute diverticulitis. Normal appendix. No signs of bowel obstruction. Nodes and vessels: No retr operitoneal or mesenteric adenopathy. Aorta and inferior vena cava are normal in size and enhancemen t. Mild atherosclerotic calcifications are seen in the aorta. Miscellaneous: No ventral hernias. PELVIS: Genitourinary: Bladder wall thickness is normal. Miscellaneous: No inguinal hernias or adenopathy. Bones: Pelvic ring and hip joints appear intact. No vertebral compression fractures. Mild degene rative changes are seen at the sacroiliac joints. Degenerative changes are also seen in the included portions of the spine. A chronic mild compression fracture is seen in the L2 vertebra. There is grade 1 anterolisthesis of L4 on L5 that appears unchanged. IMPRESSION: 1. 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 A 5 mm calculus is seen dependently within th e right renal pelvis. No ureteral calculus is seen. 2. Mild dilation of the left renal pelvis to the level of the ureteropelvic junction. A 5 mm nonobst ructing calculus is seen in the interpolar region of the left kidney. 3. Colonic diverticulosis without signs of acute diverticulitis. Reviewed by: Joel Mason MD on 10/26/2020 4:06 PM JOANN Approved by: Joel Mason MD on 10/26/2020 4:06 PM AKMERE Station ID: [id number]
== END 2020-10-26 11:39 | disposition home or self-care (01) ==
LOC: DI 11:38
PROVIDERS: ATTEND Family Medicine
DX: R10.12 Left upper quadrant pain (principal); N20.0 Calculus of kidney; K57.30 Diverticulosis of large intestine without perforation or abscess without bleeding
CPT/HCPCS: 74177; Q9967

== ENCOUNTER 2020-11-07 10:10 | Outpatient (CLI) | payer MEDICARE, OTHER ==
--- NOTE | 2020-11-07 13:20 | XRAY Report ---
PROCEDURE: Shoulder 2 View LT INDICATIONS: L SHOULDER PX TECHNIQUE: 2 views of the shoulder were acquired. COMPARISON: None. FINDINGS: Bones: No acute fractures or dislocations. No suspicious bony lesions. Visualized ribs appear inta ct. Mild acromioclavicular osteoarthrosis is present. Soft tissues: No suspicious soft tissue calcifications. IMPRESSION: No acute osseous abnormality. Mild acromioclavicular joint osteoarthrosis. If there is c linical concern or persistent symptoms, additional imaging such as repeat radiographs or advanced rashmi ging (e.g. CT, MRI) may be helpful for further evaluation. Reviewed by: Joel Mason MD on 11/07/2020 1:19 PM PDT Approved by: Joel Mason MD on 11/07/2020 1:19 PM PDT Station ID: [id number]
== END 2020-11-07 10:11 | disposition home or self-care (01) ==
LOC: DI.N 10:10
PROVIDERS: ATTEND Family Medicine
DX: M19.012 Primary osteoarthritis, left shoulder (principal)

== ENCOUNTER 2020-12-18 14:02 | Outpatient (CLI) | payer MEDICARE, OTHER ==
--- NOTE | 2020-12-18 14:44 | XRAY Report ---
PROCEDURE: Chest 2 View X-Ray INDICATIONS: L SIDE RIB PX TECHNIQUE: 2 view(s) of the chest. COMPARISON: Chest x-ray dated 11/13/2018 FINDINGS: Surgical changes and devices: None. Lungs and pleura: No pleural effusions or pneumothorax. Lungs are clear. Mediastinum: Mediastinal contours are normal. Heart size is normal. Bones and chest wall: No suspicious bony abnormalities. Soft tissues appear unremarkable. IMPRESSION: No acute process. Reviewed by: Rita Yang MD on 12/18/2020 2:43 PM PDT Approved by: Rita Yang MD on 12/18/2020 2:43 PM PDT Station ID: [id number]
--- NOTE | 2020-12-18 14:45 | XRAY Report ---
PROCEDURE: Thoracic Spine 2 View INDICATIONS: SOMATIC DYSFUNCTION OF THE THORACIC REGION TECHNIQUE: 3 views of the thoracic spine were acquired. COMPARISON: None. FINDINGS: Bones: No suspicious bony lesions. Visualized ribs are intact. Multilevel endplate osteophytes. Mi ld age-indeterminate wedging of T9. Soft tissues: No paravertebral stripe thickening. IMPRESSION: Mild age-indeterminate wedging of T9. Further assessment with thoracic spine MRI is recommended. Reviewed by: Rita Yang MD on 12/18/2020 2:44 PM PDT Approved by: Rita Yang MD on 12/18/2020 2:44 PM PDT Station ID: [id number]
== END 2020-12-18 14:03 | disposition home or self-care (01) ==
LOC: DI.N 14:02
PROVIDERS: ATTEND Family Medicine
DX: R07.81 Pleurodynia (principal); R93.7 Abnormal findings on diagnostic imaging of other parts of musculoskeletal system

== ENCOUNTER 2020-12-26 09:33 | Outpatient (CLI) | payer MEDICARE, OTHER ==
--- NOTE | 2020-12-26 17:21 | MRI Report ---
PROCEDURE: Thoracic Spine W/O INDICATIONS: COMPRESSIONFX OF T9-T10 TECHNIQUE: Noncontrast sagittal T1 spine echo and T2 fast spin echo, sagittal STIR, axial T1 and T2 fast spin ec ho through the thoracic spine. COMPARISON: None. FINDINGS: Image quality: Excellent. Alignment and Curvature: There is normal bony alignment. Bones: Benign, intraosseous hemangioma noted in the T12 vertebral body. Chronic appearing T8 and T10 compression fractures noted. T8 compression fracture results and approximately 40% loss of normal ant erior vertebral body height. T10 compression fracture results in approximately 10% loss of normal ant erior vertebral body height. No kyphosis or retropulsed fragments associated with either T8 or T10 co mpression deformities. No acute vertebral body compression fractures. Spinal Cord: Visualized spinal cord is normal in size and signal. Paraspinous Soft Tissues: No paravertebral masses. Miscellaneous: Mild degenerative disc changes noted throughout the thoracic spine. No severe central canal narrowing. No neural foraminal narrowing. No neural compression. IMPRESSION: 1. Chronic appearing T8 and T10 compression fractures. 2. Mild multilevel degenerative disease. 3. No severe central canal narrowing. 4. No severe neural foraminal narrowing. Reviewed by: Marika Ortiz MD, PhD on 12/26/2020 5:20 PM PDT Approved by: Marika Ortiz MD, PhD on 12/26/2020 5:20 PM PDT Station ID: [id number]
== END 2020-12-26 09:34 | disposition home or self-care (01) ==
LOC: DI 09:33
PROVIDERS: ATTEND Family Medicine
DX: S22.060D Wedge compression fracture of T7-T8 vertebra, subsequent encounter for fracture with routine healing (principal); S22.070D Wedge compression fracture of T9-T10 vertebra, subsequent encounter for fracture with routine healing; M51.34 Other intervertebral disc degeneration, thoracic region

== ENCOUNTER 2021-07-05 08:00 | Outpatient (CLI) | payer MEDICARE, OTHER ==
[2021-07-05 18:40] LABS: ALBUMIN 3.8 g/dL (3.2-5.5); ALBUMIN/GLOBULIN RATIO 1.1 (1.0-2.2); BILIRUBIN,TOTAL 0.7 mg/dL (0.2-1.0); CALCIUM 9.8 mg/dL (8.5-10.3); CREATININE 0.8 mg/dL (0.4-1.0); POTASSIUM 3.9 mmol/L (3.5-5.0); TOTAL PROTEIN 7.3 g/dL (6.7-8.2)
[2021-07-05 18:44] LABS: BASOPHILS # (AUTO) 0.1 10^3/uL (0.0-0.1); BASOPHILS % (AUTO) 0.7 %; EOSINOPHILS # (AUTO) 0.2 10^3/uL (0.0-0.7); EOSINOPHILS % (AUTO) 2.1 %; HCT - HEMATOCRIT 32.5 % (37.0-47.0); HGB - HEMOGLOBIN 10.3 g/dL (12.0-16.0); LYMPHOCYTES # (AUTO) 3.3 10^3/uL (1.5-3.5); LYMPHOCYTES % (AUTO) 45.9 %; MEAN CORPUSCULAR HEMOGLOBIN 28.3 pg (27.0-31.0); MEAN CORPUSCULAR HGB CONC 31.7 g/dL (32.0-36.0); MEAN CORPUSCULAR VOLUME 89.3 fL (81.0-99.0); MEAN PLATELET VOLUME 8.9 fL (7.9-10.8); MONOCYTES # (AUTO) 0.7 10^3/uL (0.0-1.0); MONOCYTES % (AUTO) 9.6 %; NEUTROPHILS % (AUTO) 41.4 %; PLT - PLATELET COUNT 315 10^3/uL (130-450); RED BLOOD COUNT 3.64 10^6/uL (4.20-5.40); WHITE BLOOD COUNT 7.3 x10^3/uL (4.8-10.8)
== END 2021-07-05 23:59 | disposition home or self-care (01) ==
LOC: LAB.WCP 08:00
PROVIDERS: ATTEND Family Medicine
DX: I10 Essential (primary) hypertension (principal)
CPT/HCPCS: 36415; 80053; 85025

== ENCOUNTER 2022-05-01 14:10 | Outpatient (CLI) | payer MEDICARE, OTHER ==
[2022-05-01 14:27] LABS: BASOPHILS % (AUTO) 0.5 %; EOSINOPHILS # (AUTO) 0.1 10^3/uL (0.0-0.7); EOSINOPHILS % (AUTO) 1.8 %; HCT - HEMATOCRIT 30.6 % (37.0-47.0); HGB - HEMOGLOBIN 9.9 g/dL (12.0-16.0); LYMPHOCYTES # (AUTO) 3.7 10^3/uL (1.5-3.5); LYMPHOCYTES % (AUTO) 48.9 %; MEAN CORPUSCULAR HEMOGLOBIN 28.9 pg (27.0-31.0); MEAN CORPUSCULAR HGB CONC 32.4 g/dL (32.0-36.0); MEAN CORPUSCULAR VOLUME 89.5 fL (81.0-99.0); MEAN PLATELET VOLUME 8.4 fL (7.9-10.8); MONOCYTES # (AUTO) 0.8 10^3/uL (0.0-1.0); MONOCYTES % (AUTO) 9.9 %; NEUTROPHILS # (AUTO) 2.9 10^3/uL (1.5-6.6); NEUTROPHILS % (AUTO) 38.5 %; PLT - PLATELET COUNT 234 10^3/uL (130-450); RED BLOOD COUNT 3.42 10^6/uL (4.20-5.40); RED CELL DISTRIBUTION WIDTH 14.3 % (12.0-15.0); WHITE BLOOD COUNT 7.6 x10^3/uL (4.8-10.8)
[2022-05-01 14:36] LABS: ALBUMIN 3.7 g/dL (3.2-5.5); ALBUMIN/GLOBULIN RATIO 1.1 (1.0-2.2); BILIRUBIN,TOTAL 0.5 mg/dL (0.2-1.0); CREATININE 0.9 mg/dL (0.4-1.0); POTASSIUM 3.8 mmol/L (3.5-5.0); TOTAL PROTEIN 7.2 g/dL (6.7-8.2)
--- NOTE | 2022-05-03 10:37 | XRAY Report ---
PROCEDURE: Hand 2 View BILAT INDICATIONS: ARTHRITIS,HANDS BILAT TECHNIQUE: Two views of the hand(s) acquired. COMPARISON: None FINDINGS: On the left there is severe osteoarthritis in the 1st CMC and 2nd CMC, 1st interphalangeal joint, 2nd distal interphalangeal joint, 3rd proximal and distal interphalangeal joints, 4th proximal and dista l interphalangeal joints. Moderate osteophytic change in the 2nd and 3rd MCPs. On the right there is severe osteoarthritic change in the 1st CMC and 1st through 4th distal interphalangeal joints. Modera te osteophytic change in the 2nd MCP and 2nd through 4th proximal interphalangeal joints. These alfonso es are characterized by joint space narrowing with subchondral sclerosis and cystic change along with marginal osteophytosis. No convincing periarticular lucency or erosive lesion. IMPRESSION: Bilateral multifocal severe and moderate osteoarthritis Reviewed by: Michael Kc MD on 05/03/2022 10:36 AM PDT Approved by: Michael Kc MD on 05/03/2022 10:36 AM PDT Station ID: [id number]
== END 2022-05-01 14:11 | disposition home or self-care (01) ==
LOC: DI 14:10
PROVIDERS: ATTEND Physician Assistant
DX: M19.041 Primary osteoarthritis, right hand (principal); M19.042 Primary osteoarthritis, left hand; I10 Essential (primary) hypertension
CPT/HCPCS: 36415; 80053; 85025

== ENCOUNTER 2022-05-24 11:50 | Emergency (ER) | payer MEDICARE, OTHER ==
[2022-05-24 12:03] VITALS: BP 123/58
--- NOTE | 2022-05-24 12:58 | CT Report ---
PROCEDURE: CERVICAL SPINE WO INDICATIONS: Fall, neck pain TECHNIQUE: Noncontrast 3 mm thick sections acquired from the skull base to the T4 level. Sagittal and coronal r eformats were then constructed. For radiation dose reduction, the following was used: automated exp osure control, adjustment of mA and/or kV according to patient size. COMPARISON: None. FINDINGS: Image quality: Excellent. Bones: No fractures or dislocations. Visualized superior ribs are intact. Soft tissues: Prevertebral soft tissues are normal in thickness. No paravertebral hematomas. No ap ical pneumothoraces. IMPRESSION: No acute finding demonstrated. Reviewed by: Michael Kc MD on 05/24/2022 12:57 PM PDT Approved by: Michael Kc MD on 05/24/2022 12:57 PM PDT Station ID: [id number]
--- NOTE | 2022-05-24 13:01 | CT Report ---
PROCEDURE: HEAD WO INDICATIONS: Trauma, fall, head injury TECHNIQUE: Noncontrast 4.5 mm thick angled axial sections acquired from the foramen magnum to the vertex. For r adiation dose reduction, the following was used: automated exposure control, adjustment of mA and/or kV according to patient size. COMPARISON: None. FINDINGS: Image quality: Excellent. CSF spaces: Basal cisterns are patent. No extra-axial fluid collections. Ventricles are normal in size and shape. Brain: No midline shift. No intracranial masses or hemorrhage. Paulino-white matter interface is norm al. Skull and face: Calvarium and visualized facial bones are intact, without suspicious lesions. Sinuses: Visualized sinuses and mastoids are clear. IMPRESSION: No acute intracranial findings. Reviewed by: Michael Kc MD on 05/24/2022 1:00 PM PDT Approved by: Michael Kc MD on 05/24/2022 1:00 PM PDT Station ID: [id number]
--- NOTE | 2022-05-24 13:20 | ED Physician Documentation ---
History of Present Illness - Stated complaint Stated Complaint: NECK PX FR FALLING - Chief complaint Chief Complaint: Trauma Hd/Nk - History obtained from History obtained from: Patient, Family - History of Present Illness Timing: How many weeks ago (2) Pain level max: 5 Pain level now: 3 - Additonal information Additional information: Patient is an 89-year-old female who presents to the emergency department after a ground-level fall 2 weeks ago. She states that she struck her head on a light fixture and has had continued head and neck pain since that time. Saw a chiropractor last week but is still having pain. She took Motrin 1 time which did help but has not taken any since. She is not on blood thinners. No nausea or vomiting. Worse with movement, better with rest. No numbness or tingling. No loss of consciousness. No seizure activity Review of Systems Constitutional: denies: Fever, Chills Respiratory: denies: Cough GI: denies: Abdominal Pain, Vomiting, Diarrhea : denies: Dysuria Skin: denies: Rash Musculoskeletal: denies: Neck pain, Back pain Neurologic: denies: Headache PD PAST MEDICAL HISTORY - Past Medical History Cardiovascular: Hypertension Respiratory: None Endocrine/Autoimmune: None : Kidney stones Psych: Depression - Past Surgical History Past Surgical History: Yes /[employer]: Other - Present Medications Home Medications: Ambulatory Orders Medication Instructions Recorded Confirmed Aspirin 1 tab ORAL DAILY PM 01/22/14 01/22/14 Cholestyramine [Questran] 01/22/14 01/22/14 LORazepam [Ativan] 1 tab ORAL PRN PRN 01/22/14 03/31/16 Losartan [Cozaar] 1 tab ORAL DAILY 01/22/14 03/31/16 Oxybutynin [Ditropan] 10 mg ORAL DAILY 01/22/14 03/31/16 dilTIAZem HCL [Tiazac] 1 tab ORAL DAILY PM 01/22/14 03/31/16 Promethazine [Phenergan] 25 - 50 mg PO Q6H PRN #10 tab 01/31/17 Lidocaine Patch 5% [Lidoderm Patch] 1 - 2 each TOP DAILY PRN #20 patch 09/11/17 Meloxicam [Mobic] 7.5 mg PO BID PRN #20 tablet 05/24/22 - Allergies Allergies/Adverse Reactions: Allergies Allergy/AdvReac Type Severity Reaction Status Date / Time cefixime Allergy Hives Verified 05/24/22 12:03 ciprofloxacin Allergy Unknown Verified 05/24/22 12:03 - Social History Does the pt smoke?: No Smoking Status: Never smoker Does the pt drink ETOH?: No Does the pt have substance abuse?: No - POLST Patient has POLST: No PD ED PE NORMAL - Vitals Vital signs reviewed: Yes - General General: Alert and oriented X 3, No acute distress - HEENT HEENT: Atraumatic, PERRL, EOMI, Moist mucous membranes - Neck Neck: Supple, no meningeal sign, Other (Mild paraspinal tenderness left paracervical. 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, No motor deficit, No sensory deficit, Normal speech Eye Opening: Spontaneous Motor: Obeys Commands Verbal: Oriented GCS Score: 15 - Psych Psych: Normal mood, Normal affect Results - Vitals Vitals: Vital Signs - 24 hr 05/24/22 11:59 Temperature 36.7 C Heart Rate 77 Respiratory 16 Rate Blood Pressure 123/58 L O2 Saturation 99 Oxygen O2 Source Room air - Rads (name of study) CT head Radiology: Final report received, EMP read contemporaneously, See rad report CT cervical spine Radiology: Final report received, EMP read contemporaneously, See rad report PD MEDICAL DECISION MAKING - ED course Complexity details: reviewed results, re-evaluated patient, considered differential, d/w patient, d/w family ED course: Neg head and cervical spine CT. Patient is well-appearing, nontoxic. Afebrile. No neurological deficits. No indication for emergent MRI. No indication of cervical instability. Will place on meloxicam for home and have her follow-up with her doctor. Patient counseled regarding signs and symptoms for which I believe and urgent re-evaluation would be necessary. Patient with good understanding of and agreement to plan and is comfortable going home at this tuan e This document was made in part using voice recognition software. While efforts are made to proofread this document, sound alike and grammatical errors may occur. Departure - Departure Disposition: 01 Home, Self Care Clinical Impression: Neck strain Qualifiers: Encounter type: initial encounter Qualified Code(s): S16.1XXA - Strain of muscle, fascia and tendon at neck level, initial encounter Closed head injury Qualifiers: Encounter type: initial encounter Qualified Code(s): S09.90XA - Unspecified injury of head, initial encounter Fall Qualifiers: Encounter type: initial encounter Qualified Code(s): W19.XXXA - Unspecified fall, initial encounter Condition: Good Instructions: ED Head Injury Closed, ED Neck Back Pain General Follow-Up: your,doctor in 1 week [Other] Prescriptions: Meloxicam [Mobic] 7.5 mg PO BID PRN #20 tablet PRN Reason: Pain Comments: Please follow-up with your doctor for further care. Your CT scans do not show any acute abnormalities today. Your prescription was sent to the [facility]. You can try heat on your neck as well to see if this helps to relax any neck pain. Return if you worsen.
== END 2022-05-24 15:27 | disposition home or self-care (01) ==
LOC: ED 11:50
DX: S16.1XXA Strain of muscle, fascia and tendon at neck level, initial encounter (principal); S09.90XA Unspecified injury of head, initial encounter; W10.8XXA Fall (on) (from) other stairs and steps, initial encounter; W22.8XXA Striking against or struck by other objects, initial encounter; I10 Essential (primary) hypertension; Z79.82 Long term (current) use of aspirin
CPT/HCPCS: 99282; 99284